=== PATIENT | male | born 1980 | race American Indian/Alaskan Native ===

== ENCOUNTER 2020-11-12 09:59 | Emergency (ER) | payer OTHER ==
[2020-11-12] MEDS ORDERED: HYDROcodone/ACETAMINOPHEN 5-325 MG TAB PO ONE (11:42)
[2020-11-12] MEDS ORDERED: amLODIPine 5 MG TAB PO ONE (11:42)
--- NOTE | 2020-11-12 11:47 | Emergency Department Report ---
ED General Adult HPI - General Chief complaint: Dental/Oral Stated complaint: RT SIDE FACE SWELLING/ABCESS/PAIN Time Seen by Provider: 11/12/20 11:40 Source: patient Mode of arrival: Ambulatory Limitations: No Limitations - History of Present Illness Initial comments: 40-year-old male with history of hypertension, noncompliant with medications, presenting with dental pain and facial swelling over the past 3 days, gradual onset, constant. Pain is nonradiating. Rates it as moderate. No other associated symptoms. Denies any symptoms related to his elevated blood pressure. No alleviating or exacerbating factors. - Related Data Previous Rx's Medication Instructions Recorded Last Taken Type Amoxicillin [Amoxicillin TAB] 875 mg PO BID #20 tablet 11/12/20 Unknown Rx Ibuprofen [Motrin 600 MG tab] 600 mg PO Q8H PRN #20 tablet 11/12/20 Unknown Rx amLODIPine 5 mg PO DAILY #30 tab 11/12/20 Unknown Rx Allergies Allergy/AdvReac Type Severity Reaction Status Date / Time No Known Allergies Allergy Unverified 11/12/20 10:13 ED Review of Systems ROS: Stated complaint: RT SIDE FACE SWELLING/ABCESS/PAIN Other details as noted in HPI Comment: All other systems reviewed and negative ENT: as per HPI ED Past Medical Hx - Past Medical History Previous Medical History?: Yes Hx Hypertension: Yes - Surgical History Past Surgical History?: No - Medications Home Medications: Home Medications Medication Instructions Recorded Confirmed Last Taken Type Amoxicillin [Amoxicillin TAB] 875 mg PO BID #20 tablet 11/12/20 Unknown Rx Ibuprofen [Motrin 600 MG tab] 600 mg PO Q8H PRN #20 tablet 11/12/20 Unknown Rx amLODIPine 5 mg PO DAILY #30 tab 11/12/20 Unknown Rx ED Physical Exam - General Limitations: No Limitations General appearance: alert, in no apparent distress - Head Head exam: Present: atraumatic, normocephalic - Eye Eye exam: Present: normal appearance - ENT ENT exam: Present: mucous membranes moist, other (Pain to tooth #29/30, mild localized swelling, no trismus, uvula midline) - Neck Neck exam: Present: normal inspection - Respiratory Respiratory exam: Present: normal lung sounds bilaterally. Absent: respiratory distress - Cardiovascular Cardiovascular Exam: Present: regular rate, normal rhythm. Absent: systolic murmur, diastolic murmur, rubs, gallop - GI/Abdominal GI/Abdominal exam: Present: soft, normal bowel sounds - Rectal Rectal exam: Present: deferred - Extremities Exam Extremities exam: Present: normal inspection - Back Exam Back exam: Present: normal inspection - Neurological Exam Neurological exam: Present: alert, oriented X3 - Psychiatric Psychiatric exam: Present: normal affect, normal mood - Skin Skin exam: Present: warm, dry, intact, normal color. Absent: rash ED Course Vital Signs 11/12/20 10:14 Temperature 98.0 F Pulse Rate 102 H Respiratory 20 Rate Blood Pressure 227/138 O2 Sat by Pulse 94 Oximetry ED Medical Decision Making - Medical Decision Making Patient with dental pain with mild localized swelling, no evidence of Adam angina, no airway compromise. We will treat and refer to dentist for follow-up. His blood pressure is markedly elevated here, initially 220s over 130s, 190s over 120s on repeat. States he does not take his medication. Denies any related symptoms including chest pain headache or dizziness or shortness of breath. Given ACEP guidelines on asymptomatic hypertension, will not pursue this further with work-up but will place on amlodipine and refer to PCP follow- up. Discussed importance of medication compliance and blood pressure control to avoid adverse outcomes. - Differential Diagnosis dental pain, abscess Critical care attestation.: If time is entered above; I have spent that time in minutes in the direct care of this critically ill patient, excluding procedure time. ED Disposition Clinical Impression: Hypertension, uncontrolled, Abscess, dental Disposition: TO HOME OR SELFCARE Is pt being admited?: No Condition: Stable Instructions: Hypertension (ED), Dental Abscess, Managing Your Hypertension Prescriptions: amLODIPine 5 mg PO DAILY #30 tab Amoxicillin [Amoxicillin TAB] 875 mg PO BID #20 tablet Ibuprofen [Motrin 600 MG tab] 600 mg PO Q8H PRN #20 tablet PRN Reason: Pain Referrals: PRIMARY CARE, [Primary Care Provider] - 3-5 Days JOSELO FITZGERALD MD [Staff Physician] - 3-5 Days Time of Disposition: 11:46
[2020-11-12 11:51] VITALS: BP 193/133
== END 2020-11-12 12:14 | disposition home or self-care (01) ==
LOC: ED 09:59
DX: K04.7 Periapical abscess without sinus (principal); I10 Essential (primary) hypertension; Z79.1 Long term (current) use of non-steroidal anti-inflammatories (NSAID); Z79.2 Long term (current) use of antibiotics; Z79.899 Other long term (current) drug therapy
CPT/HCPCS: 99282

== ENCOUNTER 2021-01-24 20:04 | Observation (INO) | payer OTHER ==
[2021-01-24] MEDS ORDERED: ASPIRIN 325 MG TAB PO ONE (21:45)
[2021-01-24 22:09] LABS: Basophils # (Auto) 0.1 K/mm3 (0.0-0.1); Basophils % (Auto) 0.8 % (0.0-1.8); Eosinophils # (Auto) 0.1 K/mm3 (0.0-0.4); Eosinophils % (Auto) 1.6 % (0.0-4.3); Hemoglobin 14.1 gm/dl (11.8-15.2); Lymphocytes # (Auto) 3.4 K/mm3 (1.2-5.4); Lymphocytes % (Auto) 39.4 % (13.4-35.0); Mean Corpuscular HGB Conc 32 % (32-34); Mean Corpuscular Volume 77 fl (84-94); Monocytes % (Auto) 11.1 % (0.0-7.3); Platelet Count 174 K/mm3 (140-440); Red Blood Count 5.71 M/mm3 (3.65-5.03); Red Cell Distribution Width 16.2 % (13.2-15.2)
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
[2021-01-24] MEDS ORDERED: hydrALAZINE 100 MG TAB PO ONE (22:27)
[2021-01-24 22:29] LABS: BUN/Creatinine Ratio 17; Blood Urea Nitrogen 19 mg/dL (9-20); Calcium 8.8 mg/dL (8.4-10.2); Hemolysis Index 13
--- NOTE | 2021-01-24 22:45 | XRay Report ---
CHEST 1 VIEW 01/24/2021 9:32 PM INDICATION / CLINICAL INFORMATION: Chest Pain. COMPARISON: None available. FINDINGS: SUPPORT DEVICES: None. HEART / MEDIASTINUM: Borderline cardiomegaly. LUNGS / PLEURA: No significant pulmonary or pleural abnormality. No pneumothorax. ADDITIONAL FINDINGS: No significant additional findings. IMPRESSION: Borderline cardiomegaly. Signer Name: Bandar Harmon MD Signed: 01/24/2021 10:40 PM Workstation Name: [id number]
[2021-01-24 23:17] LABS: Alanine Aminotransferase 40 units/L (7-56); Albumin 4.2 g/dL (3.9-5)
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
[2021-01-24 23:49] LABS: Bilirubin,Direct < 0.2 mg/dL (0-0.2)
[2021-01-25] MEDS ORDERED: cloNIDine 0.2 MG TAB PO ONE (00:07)
[2021-01-25] MEDS ORDERED: FUROSEMIDE 40 MG/4 ML INJ IV ONE (01:26)
[2021-01-25] MEDS ORDERED: MORPHINE 2 MG/1 ML INJ IV PRN (02:11)
[2021-01-25] MEDS ORDERED: ONDANSETRON 4 MG/2 ML INJ IV PRN (02:12)
[2021-01-25] MEDS ORDERED: ALBUTEROL 2.5 MG/3 ML NEBU IH PRN (02:17)
[2021-01-25] MEDS: HEPARIN 5,000 UNIT/1 ML VIAL SUB-Q SCH ×2 (02:58→11:35)
[2021-01-25] MEDS: hydrALAZINE 20 MG/1 ML INJ IV PRN ×2 (04:24→11:38)
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
[2021-01-25] MEDS: NITROGLYCERIN 2% OINT 1 GM TP SCH ×3 (06:03→13:57)
[2021-01-25 06:31] LABS: Creatine Kinase MB 1.9 ng/mL (0.0-4.0)
--- NOTE | 2021-01-25 08:24 | Progress Note ---
Assessment and Plan Assessment and plan: --Hypertensive urgency; On multiple antihypertensive Hydralazine, amlodipine, as needed hydralazine Beta-blockers, DC amlodipine add nifedipine And lisinopril Closely monitor, if no improvement Consider Cardene drip and transfer the patient to ICU --History of hypertension for many years Noncompliant with medications Advised to comply with medications diet and follow-up visits Verbalized understanding --Atypical chest pain: Status post stress test, negative for ischemia Echocardiogram; pending Chest pain probably secondary to GERD --GERD; IV Protonix, probably the cause of chest pain Closely monitor --Ongoing tobacco use; Smoking cessation counseling, Nicotine patch as needed --DVT prophylaxis; Lovenox --Morbid obesity; BMI 56.9 Patient needs weight reduction when medically stable Patient may benefit by bariatric consultation for weight reduction program when medically stable Closely monitor the patient and adjust the management as needed Plan of care reviewed with the patient and his nurse Patient is anxious to go home Counseled him the importance of getting his blood pressure control Prior to discharge, he verbalized understanding History Interval history: I have seen and examined the patient at the bedside Patient's chart and medications reviewed Patient stress test is negative However blood pressures are uncontrolled echo is pending Patient denies chest pain or shortness of breath Anxious to go home Vital signs reviewed Hospitalist Physical - Constitutional Vitals: Temp Pulse Resp BP Pulse Ox 97.9 F 95 H 20 189/122 97 01/25/21 03:45 01/25/21 06:00 01/25/21 06:00 01/25/21 06:00 01/25/21 06:00 General appearance: Present: mild distress, obese (Morbidly obese) - EENT Eyes: Present: PERRL, EOM intact - Neck Neck: Present: supple, normal ROM - Respiratory Respiratory effort: normal Respiratory: bilateral: diminished, negative: rales, rhonchi, wheezing - Cardiovascular Rhythm: regular Heart Sounds: Present: S1 & S2 - Extremities Extremities: no ischemia, No edema - Abdominal General gastrointestinal: soft, non-tender, non-distended, normal bowel sounds - Integumentary Integumentary: Present: clear, warm - Psychiatric Psychiatric: appropriate mood/affect, cooperative - Neurologic Neurologic: CNII-XII intact, moves all extremities HEART Score - HEART Score EKG: Normal Age: < 45 Risk factors: > 3 risk factors or hx of atherosclerotic disease Troponin: Troponin T < 0.010 ng/mL (0.00-0.029) 01/25/21 05:58 Troponin: < normal limit - Critical Actions Critical Actions: 4-6 pts:12-16.6% risk of adverse cardiac event. Should be admitted (PATIENT UNDERGOING WORK UP FOR CAD) Results - Labs CBC & Chem 7: 01/24/21 21:57 01/24/21 21:57 Labs: Laboratory Last Values WBC 8.7 K/mm3 (4.5-11.0) 01/24/21 21:57 RBC 5.71 M/mm3 (3.65-5.03) H 01/24/21 21:57 Hgb 14.1 gm/dl (11.8-15.2) 01/24/21 21:57 Hct 44.0 % (35.5-45.6) 01/24/21 21:57 MCV 77 fl (84-94) L 01/24/21 21:57 MCH 25 pg (28-32) L 01/24/21 21:57 MCHC 32 % (32-34) 01/24/21 21:57 RDW 16.2 % (13.2-15.2) H 01/24/21 21:57 Plt Count 174 K/mm3 (140-440) 01/24/21 21:57 Lymph % (Auto) 39.4 % (13.4-35.0) H 01/24/21 21:57 [place] % (Auto) 11.1 % (0.0-7.3) H 01/24/21 21:57 Eos % (Auto) 1.6 % (0.0-4.3) 01/24/21 21:57 Baso % (Auto) 0.8 % (0.0-1.8) 01/24/21 21:57 Lymph # (Auto) 3.4 K/mm3 (1.2-5.4) 01/24/21 21:57 [place] # (Auto) 1.0 K/mm3 (0.0-0.8) H 01/24/21 21:57 Eos # (Auto) 0.1 K/mm3 (0.0-0.4) 01/24/21 21:57 Baso # (Auto) 0.1 K/mm3 (0.0-0.1) 01/24/21 21:57 Seg Neutrophils % 47.1 % (40.0-70.0) 01/24/21 21:57 Seg Neutrophils # 4.1 K/mm3 (1.8-7.7) 01/24/21 21:57 D-Dimer 188.98 ng/mlDDU (0-234) 01/25/21 00:06 Sodium 139 mmol/L (137-145) 01/24/21 21:57 Potassium 3.6 mmol/L (3.6-5.0) 01/24/21 21:57 Chloride 103.8 mmol/L (98-107) 01/24/21 21:57 Carbon Dioxide 25 mmol/L (22-30) 01/24/21 21:57 Anion Gap 14 mmol/L 01/24/21 21:57 BUN 19 mg/dL (9-20) 01/24/21 21:57 Creatinine 1.1 mg/dL (0.8-1.3) 01/24/21 21:57 Estimated GFR > 60 ml/min 01/24/21 21:57 BUN/Creatinine Ratio 17 % 01/24/21 21:57 Glucose 113 mg/dL (75-100) H 01/24/21 21:57 Calcium 8.8 mg/dL (8.4-10.2) 01/24/21 21:57 Total Bilirubin 0.30 mg/dL (0.1-1.2) 01/24/21 Unknown Direct Bilirubin < 0.2 mg/dL (0-0.2) 01/24/21 Unknown Indirect Bilirubin 0.1 mg/dL 01/24/21 Unknown AST 23 units/L (5-40) 01/24/21 Unknown ALT 40 units/L (7-56) 01/24/21 Unknown Alkaline Phosphatase 102 units/L (35-129) 01/24/21 Unknown Total Creatine Kinase 172 units/L (55-170) H 01/25/21 05:58 CK-MB (CK-2) 1.9 ng/mL (0.0-4.0) 01/25/21 05:58 CK-MB (CK-2) Rel Index 1.1 (0-4) 01/25/21 05:58 Troponin T < 0.010 ng/mL (0.00-0.029) 01/25/21 05:58 NT-Pro-B Natriuret Pep 379.5 pg/mL (0-450) 01/24/21 Unknown Total Protein 6.9 g/dL (6.3-8.2) 01/24/21 Unknown Albumin 4.2 g/dL (3.9-5) 01/24/21 Unknown Albumin/Globulin Ratio 1.6 % 01/24/21 Unknown Active Medications - Current Medications Current Medications: Generic Name Dose Route Start Last Admin Trade Name Freq PRN Reason Stop Dose Admin Acetaminophen 650 mg 01/25/21 02:14 Acetaminophen 325 Mg Tab PO Q4H PRN Headache Albuterol 2.5 mg 01/25/21 02:17 Albuterol 2.5 Mg/3 Ml Nebu IH Q6HRT PRN Shortness Of Breath Amlodipine Besylate 5 mg 01/25/21 10:00 Amlodipine 5 Mg Tab PO DAILY [facility] Aspirin 325 mg 01/25/21 10:00 Aspirin 325 Mg Tab PO QDAY [facility] Heparin Sodium (Porcine) 5,000 unit 01/25/21 02:15 01/25/21 02:58 Heparin 5,000 Unit/1 Ml Vial SUB-Q Not Given Q12HR [facility] Hydralazine HCl 10 mg 01/25/21 02:15 01/25/21 04:24 Hydralazine 20 Mg/1 Ml Inj IV 10 mg Q4HR PRN Administration Blood Pressure Hydralazine HCl 50 mg 01/25/21 08:25 Hydralazine 25 Mg Tab PO Q8HR [facility] Morphine Sulfate 2 mg 01/25/21 02:11 Morphine 2 Mg/1 Ml Inj IV Q3H PRN Pain, Moderate (4-6) Nitroglycerin 1 inch 01/25/21 06:00 01/25/21 06:03 Nitroglycerin 2% Oint 1 Gm TP 1 inch QIDNTG [facility] Administration Protocol Ondansetron HCl 4 mg 01/25/21 02:12 Ondansetron 4 Mg/2 Ml Inj IV Q8H PRN Nausea And Vomiting
[2021-01-25] MEDS ORDERED: REGADENOSON 0.4 MG/5 ML INJ IV ONE (09:06)
[2021-01-25] MEDS ORDERED: amLODIPine 5 MG TAB PO SCH (10:00)
[2021-01-25] MEDS ORDERED: ASPIRIN 325 MG TAB PO SCH (10:00)
[2021-01-25] MEDS: ACETAMINOPHEN 325 MG TAB PO PRN ×2 (10:35→11:34)
--- NOTE | 2021-01-25 11:32 | Treadmill Report ---
NUCLEAR PERFUSION SCAN REFERRING PHYSICIAN: Dr. Bernal. PROCEDURE IN DETAIL: The patient was brought to stress lab in a postabsorptive state, given 10 mCi of technetium 99m at rest. The patient underwent rest imaging. The patient underwent Lexiscan stress test per standard protocol. At peak stress, the patient was given 26 mCi nail technician teacher 99m. Shortly thereafter, the patient underwent stress imaging. Raw imaging reveals mild GI artifact. This is a technically difficult study due to body habitus. The patient weighs nearly 400 pounds. Grossly, I do not see evidence of a significant fixed or reversible defect. Gated wall motion is calculated at 42%, but due to artifact. Unclear if this is accurate. CONCLUSIONS: 1. Technically very difficult study due to body habitus, but grossly no evidence of significant ischemia or prior infarction. 2. Probably normal LV function, but would correlate with echocardiography. JOB# [id number] SBM/NTS
[2021-01-25] MEDS: hydrALAZINE 25 MG TAB PO SCH ×2 (11:35→14:24)
[2021-01-25 16:23] VITALS: BP 204/111
[2021-01-25] MEDS ORDERED: cloNIDine 0.2 MG TAB PO NR (16:25)
--- NOTE | 2021-01-25 18:39 | Discharge Summary ---
Providers - Providers Date of Admission: 01/25/21 01:33 Date of discharge: 01/25/21 Attending physician: ISHAAN ALFONSO Primary care physician: PLASTIC SURGERY SPECIALIST Hospitalization Condition: Critical Disposition: DC-07 LEFT AGAINST MED ADVICE Exam - Constitutional Vitals: Temp Pulse Resp BP Pulse Ox 97.9 F 111 H 20 204/111 95 01/25/21 15:52 01/25/21 15:52 01/25/21 15:52 01/25/21 15:52 01/25/21 15:52 Plan Forms: AMA Form
[2021-01-25] MEDS ORDERED: NIFEdipine XL 30 MG TAB PO SCH (22:00)
[2021-01-25] MEDS ORDERED: METOPROLOL TARTRATE 50 MG TAB PO SCH (22:00)
[2021-01-25] MEDS ORDERED: cloNIDine 0.1 MG TAB PO SCH (22:00)
== END 2021-01-25 17:05 | disposition left against medical advice (07) ==
LOC: ED 20:04 → 4A 01-25 01:33
PROVIDERS: ADMIT Internal Medicine; ATTEND Internal Medicine
DX: R07.89 Other chest pain (principal); I16.9 Hypertensive crisis, unspecified; E66.01 Morbid (severe) obesity due to excess calories; K21.9 Gastro-esophageal reflux disease without esophagitis; F17.200 Nicotine dependence, unspecified, uncomplicated; R79.89 Other specified abnormal findings of blood chemistry; R06.00 Dyspnea, unspecified; R74.8 Abnormal levels of other serum enzymes; Z98.890 Other specified postprocedural states; Z79.82 Long term (current) use of aspirin; Z68.43 Body mass index [BMI] 50.0-59.9, adult
CPT/HCPCS: 36415; 71045; 78452; 80048; 80076; 82550; 82553; 83880; 84484; 85025; 85379; 93005; 93017; 93306; 96374; 96375; 96376; 99291; A9502; G0378; J0360; J1940; J2785